=== PATIENT | female | born 1985 | race Two or more races ===

== ENCOUNTER 2017-12-14 14:30 | Emergency (ER) | payer BC ==
[2017-12-14 14:45] VITALS: BP 107/70
[2017-12-14] MEDS ORDERED: NORMAL SALINE 1000 ML 1,000 ML IV ONE (16:44)
[2017-12-14] MEDS ORDERED: MECLIZINE HCL 25 MG TABLET PO ONE (16:45)
[2017-12-14] MEDS ORDERED: DIAZEPAM INJ 10 MG/2 ML DISP.SYRIN IV ONE (16:45)
[2017-12-14 17:28] LABS: ABSOLUTE EOSINOPHILS # (AUTO) 0.2 10^3/uL (0.0-0.6); ABSOLUTE MONOCYTES (AUTO) 0.6 10^3/uL (0.1-1.4); ABSOLUTE NEUT (AUTO) 3.3 10^3/uL (1.7-8.2); BASOPHILS % (AUTO) 0.6 % (0-2); EOSINOPHILS % (AUTO) 2.9 % (0-6); HEMATOCRIT 41.6 % (36.0-47.0); HEMOGLOBIN 14.3 g/dL (12.0-15.5); LYMPHOCYTES % (AUTO) 48.7 % (13-45); MEAN CORPUSCULAR HEMOGLOBIN 31.9 pg (27.0-33.4); MEAN CORPUSCULAR HGB CONC 34.4 g/dL (32.0-36.0); MEAN CORPUSCULAR VOLUME 93 fl (80-97); MONOCYTES % (AUTO) 7.5 % (3-13); PLATELET COUNT 173 10^3/uL (150-450); RED BLOOD COUNT 4.48 10^6/uL (3.72-5.28); RED CELL DISTRIBUTION WIDTH 13.6 % (11.5-14.0); SEGMENTED NEUTROPHILS % (AUTO) 40.3 % (42-78); TOTAL CELLS COUNTED % (AUTO) 100 %; WHITE BLOOD COUNT 8.2 10^3/uL (4.0-10.5)
[2017-12-14 17:43] LABS: ALANINE AMINOTRANSFERASE 52 U/L (9-52); ALBUMIN 3.9 g/dL (3.5-5.0); ALKALINE PHOSPHATASE 73 U/L (38-126); ANION GAP 8 (5-19); ASPARTATE AMINO TRANSFERASE 32 U/L (14-36); BILIRUBIN,DIRECT 0.4 mg/dL (0.0-0.4); BILIRUBIN,TOTAL 0.5 mg/dL (0.2-1.3); BLOOD UREA NITROGEN 7 mg/dL (7-20); CARBON DIOXIDE 28 mmol/L (22-30); CHLORIDE 107 mmol/L (98-107); GLUCOSE 107 mg/dL (75-110); POTASSIUM 3.7 mmol/L (3.6-5.0); SODIUM 142.5 mmol/L (137-145); TOTAL PROTEIN 6.8 g/dL (6.3-8.2)
--- NOTE | 2017-12-14 18:27 | RADIOLOGY REPORT (SQ) ---
EXAM DESCRIPTION: CT HEAD WITHOUT COMPLETED DATE/TIME: 12/14/2017 6:03 pm REASON FOR STUDY: vertigo COMPARISON: None. TECHNIQUE: Axial images acquired through the brain without intravenous contrast. Images reviewed wi th bone, brain and subdural windows. Images stored on PACS. All CT scanners at this facility use dose modulation, iterative reconstruction, and/or weight based d osing when appropriate to reduce radiation dose to as low as reasonably achievable (ALARA). [facility]: Dose Right [facility]: CareDose [facility]: Dose Right [facility]: Teradose 4D [facility]: [place] RADIATION DOSE: CT Rad equipment meets quality standard of care and radiation dose reduction techniq ues were employed. CTDIvol: 53.2 mGy. DLP: 1017 mGy-cm. mGy. LIMITATIONS: None. FINDINGS: VENTRICLES: Normal size and contour. CEREBRUM: No masses. No hemorrhage. No midline shift. No evidence for acute infarction. Normal gra y/white matter differentiation. No areas of low density in the white matter. CEREBELLUM: No masses. No hemorrhage. No alteration of density. No evidence for acute infarction. EXTRAAXIAL SPACES: No fluid collections. No masses. ORBITS AND GLOBE: No intra- or extraconal masses. Normal contour of globe without masses. CALVARIUM: No fracture. PARANASAL SINUSES: Bilateral maxillary fluid -mucosal thickening. SOFT TISSUES: No mass or hematoma. OTHER: No other significant finding. IMPRESSION: No acute intracranial findings. Bilateral maxillary sinusitis. EVIDENCE OF ACUTE STROKE: NO. COMMENT: Quality ID # [id number]: Final reports with documentation of one or more dose reduction techniques (e.g., Automated exposure control, adjustment of the mA and/or kV according to patient size, use of iterative reconstruction technique) TECHNICAL DOCUMENTATION: JOB ID: [id number] [place]-72 2010 [employer]- All Rights Reserved Reading location - IP/workstation name: [email or web address]
--- NOTE | 2017-12-14 18:57 | ER Document Report ---
ED General - General Chief Complaint: Dizziness Stated Complaint: DIZZINESS,HEADACHE Time Seen by Provider: 12/14/17 16:20 Notes: Patient is a 31-year-old female that presents to the emergency department for chief complaint of vertigo. Patient states she has been having intermittent vertiginous symptoms over the past 4 days. 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 They will, and severe intensity, and then wane after several minutes. Most recently this episode was lasting longer so she decided to come to the emergency department. She has had nausea but no vomiting. She has had some sinus congestion, denies having any headaches, lightheadedness, syncopal episodes, numbness, tingling or weakness. She has never had vertigo in the past. Denies any other symptoms at this time. She states that she even took 2 tests because she was concerned maybe she was . Both were negative. Past Medical History: Diabetes mellitus, PCOS, migraines Past Surgical History: Hernia repair Social History: Admits to smoking cigarettes, denies alcohol or drug use. Family History: Reviewed and noncontributory for presenting illness Allergies: Reviewed, see documented allergy list. REVIEW OF SYSTEMS: Unless otherwise stated in this report the patient's positive and negative responses for review of systems for constitutional, eyes, ENT, cardiovascular, respiratory, gastrointestinal, neurological, genitourinary, musculoskeletal, and integumentary systems and related systems to the presenting problem are either as stated in the HPI or were not pertinent or were negative for the symptoms and/or complaints related to the presenting medical problem. PHYSICAL EXAMINATION: Vital signs reviewed, nursing noted reviewed. GENERAL: Well-appearing, well-nourished and in no acute distress. HEAD: Atraumatic, normocephalic. EYES: Horizontal nystagmus to the right, fatigable, extraocular movements intact , sclera anicteric, conjunctiva are normal. ENT: nares patent, oropharynx clear without exudates. Moist mucous membranes. TMs appear normal bilaterally NECK: Normal range of motion, supple without lymphadenopathy LUNGS: Breath sounds clear to auscultation bilaterally and equal. No wheezes rales or rhonchi. HEART: Regular rate and rhythm without murmurs ABDOMEN: Soft, nontender, normoactive bowel sounds. No rebound, guarding, or rigidity. No masses appreciated. EXTREMITIES: Nontender, good range of motion, no pitting or edema. NEUROLOGICAL: No focal neurological deficits. Moves all extremities spontaneously Motor and sensory grossly intact on exam. PSYCH: Normal mood, normal affect. SKIN: Warm, Dry, normal turgor, no rashes or lesions noted on exposed skin TRAVEL OUTSIDE OF THE [place] IN LAST 30 DAYS: No - Related Data Allergies/Adverse Reactions: No Known Allergies Allergy (Unverified 12/14/17 14:33) Past Medical History - Social History Smoking Status: Current Every Day Smoker Family History: Reviewed & Not Pertinent Patient has suicidal ideation: No Patient has homicidal ideation: No Neurological Medical History: Reports: Hx Migraine Endocrine Medical History: Reports: Hx Diabetes Mellitus Type 2 Renal/ Medical History: Denies: Hx Peritoneal Dialysis Physical Exam - Vital signs Vitals: Temp Pulse Resp BP Pulse Ox 98.5 F 99 16 107/70 98 12/14/17 14:41 12/14/17 14:41 12/14/17 14:41 12/14/17 14:41 12/14/17 14:41 Course - Re-evaluation Re-evalutation: Patient seen and examined vital signs reviewed. Laboratory data and imaging were ordered as appropriate for the patient's presenting symptoms and complaint, with consideration of any critical or life threatening conditions that may be associated with their obtained history and exam as noted above. Patient was treated with IV fluids, IV Valium and p.o. meclizine 25 mg Results were reviewed when available and demonstrated negative head CT, blood work unremarkable The patient was re-evaluated and was feeling much better, vertigo was resolved Evaluation was most consistent with benign paroxysmal positional vertigo, patient educated to sleep at a 45 degree angle for the next 3-5 nights, to help reduce recurrence of her vertigo, advised to follow-up with her primary care physician. Laboratory 12/14/17 12/14/17 17:00 17:00 WBC 8.2 RBC 4.48 Hgb 14.3 Hct 41.6 MCV 93 MCH 31.9 MCHC 34.4 RDW 13.6 Plt Count 173 Seg Neutrophils % 40.3 L Lymphocytes % 48.7 H Monocytes % 7.5 Eosinophils % 2.9 Basophils % 0.6 Absolute Neutrophils 3.3 Absolute Lymphocytes 4.0 Absolute Monocytes 0.6 Absolute Eosinophils 0.2 Absolute Basophils 0.0 Sodium 142.5 Potassium 3.7 Chloride 107 Carbon Dioxide 28 Anion Gap 8 BUN 7 Creatinine 0.67 Est GFR ( Amer) > 60 Est GFR (Non-Af Amer) > 60 Glucose 107 Calcium 9.0 Total Bilirubin 0.5 Direct Bilirubin 0.4 Neonat Total Bilirubin Not Reportable Neonat Direct Bilirubin Not Reportable Neonat Indirect Bili Not Reportable AST 32 ALT 52 Alkaline Phosphatase 73 Total Protein 6.[address] 12/14/17 16:44 IMPRESSION: No acute intracranial findings. Bilateral maxillary sinusitis. EVIDENCE OF ACUTE STROKE: NO. Results were discussed with the patient at this point, after careful consideration I feel that that patient can be discharged from the emergency department, the patient was educated treatments and reasons to return to the emergency department based on their presumed diagnosis as noted above, they were advised to followup with a primary care physician in 2-3 days. Patient was agreeable to plan of care. *Note is created using voice recognition software and may contain spelling, syntax or grammatical errors. - Vital Signs Vital signs: Temp Pulse Resp BP Pulse Ox 98.5 F 99 16 107/70 96 12/14/17 14:41 12/14/17 14:41 12/14/17 14:41 12/14/17 14:41 12/14/17 16:44 - Laboratory Result Diagrams: 12/14/17 17:00 12/14/17 17:00 Laboratory results interpreted by me: 12/14/17 17:00 Seg Neutrophils % 40.3 L Lymphocytes % 48.7 H Discharge - Discharge Clinical Impression: Vertigo Condition: Stable Disposition: HOME, SELF-CARE Instructions: Vertigo ([facility]) Additional Instructions: Please return to the emergency department if you have any worsening, or concern of your symptoms. Please return to the emergency department if you develop chest pain, difficulty breathing, severe abdominal pain, or ongoing vomiting. Please follow-up with your primary care physician in 2-3 days and any other recommended physicians. If prescribed, take all medications as directed. If you have any questions or concerns do not hesitate to return the emergency department for evaluation. Prescriptions: Meclizine HCl 25 mg PO Q8H PRN #15 tablet PRN Reason: Dizziness Referrals: MARCE ROBERTSON MD [ACTIVE STAFF] - Follow up in 3-5 days (or your primary care. )
--- NOTE | 2017-12-15 20:57 | EKG REPORT ---
SEVERITY:- NORMAL ECG - SINUS RHYTHM : Confirmed by: Lela Celeste MD 15-Dec-2017 20:56:12
== END 2017-12-14 19:26 | disposition home or self-care (01) ==
LOC: ER 14:30
DX: R42 Dizziness and giddiness (principal); J32.0 Chronic maxillary sinusitis; R11.0 Nausea; E11.9 Type 2 diabetes mellitus without complications; F17.210 Nicotine dependence, cigarettes, uncomplicated
CPT/HCPCS: 93005; 99284; 96361; 96374; 36415; 85025; 80053; 70450; 93010; J3360

== ENCOUNTER 2018-11-04 18:24 | Emergency (ER) | payer BC ==
[2018-11-04] MEDS ORDERED: OXYCODONE-ACETAMINOPHEN 5-325 MG TABLET PO ONE (19:13)
[2018-11-04] MEDS ORDERED: ONDANSETRON 4 MG TAB.RAPDIS PO ONE (19:13)
--- NOTE | 2018-11-04 19:16 | ER Document Report ---
ED Medical Screen (RME) - General Chief Complaint: Abscess Stated Complaint: POSSIBLE ABSCESS Time Seen by Provider: 11/04/18 19:08 Notes: Patient is a 32-year-old female who presents to the emergency department with a chief complaint of abscess. Patient reports she has had an abscess to the right groin and outer right labia for 3 days. She states she is use Epson salt, warm compresses, and [id number]-[id number] ointment but is supposed to draw the infection out without any relief. Patient reports that has not drained and pop like hers normally does. Patient denies a history of MRSA. TRAVEL OUTSIDE OF THE [place] IN LAST 30 DAYS: No - Related Data Allergies/Adverse Reactions: No Known Allergies Allergy (Verified 11/04/18 18:25) Past Medical History Neurological Medical History: Reports: Hx Migraine Endocrine Medical History: Reports: Hx Diabetes Mellitus Type 2 Renal/ Medical History: Denies: Hx Peritoneal Dialysis Physical Exam - Vital signs Vitals: Temp Pulse Resp BP Pulse Ox 98.1 F 91 13 110/76 95 11/04/18 18:38 11/04/18 18:38 11/04/18 18:38 11/04/18 18:38 11/04/18 18:38 Interpretation: Normal - Skin Notes: Multiple small abscesses noted to the left and right inner thighs and groin area. There is a large abscess that is firm and extremely tender to touch noted on the outside of the right labia, there is no drainage. Course - Re-evaluation Re-evalutation: 11/04/18 19:15 Patient will require an incision and drainage. Will medicate for pain. I have greeted and performed a rapid initial assessment of this patient. A comprehensive ED assessment and evaluation of the patient, analysis of test results and completion of the medical decision making process will be conducted by additional ED providers. - Vital Signs Vital signs: Temp Pulse Resp BP Pulse Ox 98.1 F 91 13 110/76 95 11/04/18 18:38 11/04/18 18:38 11/04/18 18:38 11/04/18 18:38 11/04/18 18:38
--- NOTE | 2018-11-04 22:02 | ER Document Report ---
ED Skin Rash/Insect Bite/Abscs - General Chief Complaint: Abscess Stated Complaint: POSSIBLE ABSCESS Time Seen by Provider: 11/04/18 19:08 Primary Care Provider: EMERSON YOUSSEF MD [ACTIVE STAFF] - Follow up in 3-5 days Mode of Arrival: Ambulatory Information source: Patient Notes: 32 yr old female pt here for concern of an acute flare of her hidradenitis suppurativa with an abscess to her right groin for 3 days. pos hx of this before. no fevers. No drainage. No recent antibiotics or steroids other than clindamycin topical. hx of diabetes but states her sugars are well controlled. hasn't f/u with surgeon to discuss possible marsupilization procedure. hasn't had mrsa testing done. has tried otc boil ease and epson salt soaks with no relief. no hx of asthma. area painful. not itchy. no other known trauma or injury or bite. denies . no vaginal dc, abd pain, vomiting, change in bowel or bladder, back pain, rectal pain, uti sx, or concerns for stds. no other complaints at this time. TRAVEL OUTSIDE OF THE [place] IN LAST 30 DAYS: No - Related Data Allergies/Adverse Reactions: No Known Allergies Allergy (Verified 11/04/18 18:25) Past Medical History - General Information source: Patient - Social History Smoking Status: Current Every Day Smoker Chew tobacco use (# tins/day): No Frequency of alcohol use: Occasional Drug Abuse: None Lives with: Spouse/Significant other Family History: Reviewed & Not Pertinent Patient has suicidal ideation: No Patient has homicidal ideation: No Neurological Medical History: Reports: Hx Migraine Endocrine Medical History: Reports: Hx Diabetes Mellitus Type 2 Renal/ Medical History: Denies: Hx Peritoneal Dialysis Skin Medical History: Reports Other - hirdadenitis suppurativa Infectious Medical History: Reports: None - Immunizations Immunizations up to date: Yes Review of Systems - Review of Systems -: Yes All other systems reviewed and negative - to include 10 systems, unless mentioned in the hpi Physical Exam - Vital signs Vitals: Temp Pulse Resp BP Pulse Ox 98.1 F 91 13 110/76 95 11/04/18 18:38 11/04/18 18:38 11/04/18 18:38 11/04/18 18:38 08/18/19 18:38 Interpretation: Normal Notes: GENERAL_APPEARANCE: well_nourished, alert, cooperative, no_acute distress, no_obvious discomfort. Pleasant, obese middle aged female, smiling, speaking in full sentences, in no sign of pain or resp distress, easily sitting up, who is a wound care doctor is at bedside VITALS: reviewed, see vital signs table. HEENT: PERRL, EOMI, no pharyngeal edema, normal speech, no nasal drainage, no airway obstruction, no lymphadenopathy. no tongue or lip swelling. HEART: RRR LUNGS: CTAB ABD: soft, nonttp, good bowel sounds, no hernias, no guarding, distension, rebound, or peritoneal signs. no cva ttp, no inguinal lymphadenopathy EXTREMITIES: good pulses in all extremities, no edema. Full rom. full strength. brisk cap refill. Normal gait. no other swelling or ttp. good hand communications officer. SKIN: warm, dry, good_color, the bilat groin have chronic scarring appearance from multiple prior i and d's and hx of hidradenitis suppurativa. there is a 4cm x 2m area of erythematous induration in right groin that is slightly fluctuant and ttp, doesn't appear to involve the labia, vagina, or rectum. no bartholin glands abscess/cyst. internal vaginal exam not done, no drainage, streaking fluctuation, or bleeding. no grossly visible or palpable fb, no sign of compartment syndrome or septic jt. area ttp. no sign of allergic reaction or anaphylaxis NEURO: motor_intact, sensory_intact. cranial nerves 2-12 intact. cerebellar fxn intact - General General appearance: Appears well, Alert - HEENT Head: Normocephalic, Atraumatic - Cardiovascular Murmur: No Course - Re-evaluation Re-evalutation: pt here for abscess to right groin. it was i and d'd as listed. will dc with doxy. advised sx care. advised wound care. instructed may benefit from seeing gen surg for marsupilization. otc meds for pain. wound culture pending. advised will call with any results that require change in plan of care. advised to f/u with pcp/gen surg in 1-2 days. return for any worsening symptoms. vss. well appearing. satting well on ra. neurononfocal. pt understands and agrees to plan. On reexam, pt improved with tx listed. remained stable. nontoxic. well appearing. pain controlled. tolerating po. requesting to go home. case discussed with ER Attending, Dr. Chan, who directed and agrees with plan of care and also saw and evaluated the pt himself and advised to i and d the area and give f/u with gen surg and that no further workup was indicated at this time and pt is stable for dc home with close f/u with pcp/surg. Documentation achieved through voice recording which may lead to some occasional accidental typographical errors. Extensive efforts have been made to proof read documentation to make sure these are the least as possible. Category Date Time Status Incision and Drainage [I&D Setup (ED)] NOW Care 11/04/18 22:17 Active WOUND CULTURE + GRAM STAIN [] Stat Lab 11/04/18 23:30 Completed Lidocaine HCl/Epinephrine [Xylocaine 1%/Epi 1:100,000 Med 11/04/18 22:17 Discontinued Inj 20 ml Vial] 20 ml INJ NOW ONE Morphine Sulfate [Morphine 10 mg/ml Inj] Med 11/04/18 22:21 Discontinued 4 mg IM NOW ONE Ondansetron [Zofran Odt 4 mg Tablet] Med 11/04/18 19:13 Discontinued 4 mg PO NOW ONE Oxycodone HCl/Acetaminophen [Percocet 5-325 mg Tablet] Med 11/04/18 19:13 Discontinued 2 tab PO NOW ONE - Vital Signs Vital signs: Temp Pulse Resp BP Pulse Ox 97.7 F 60 16 106/68 96 11/04/18 23:47 11/04/18 23:47 11/04/18 23:47 11/04/18 23:47 11/04/18 23:47 Procedures - Incision and Drainage Right Groin Type: Simple Anesthetic type: 1% Lidocaine w/epi Blade size: 11 I&D procedure: Betadine prep applied Incision Method: Incision made by scalpel Amount/type of drainage: <5ml bloody purulent drainage. Notes: INCISION AND DRAINAGE PROCEDURE of right groin abscess: The benefits, risks, and possible complications of the procedure were explained to the patient who clearly understood and gave verbal consent without reservation. The area was prepped with betadine and anesthetized with 1%_lidocaine_with_epi. A 3 cm incision was made superifically in the most fluctuant area of the abscess using a #11_blade sterile scalpel. <5 mL bloody pus expressed and then the cavity was probed superficially and gently with a hemostat and all loculations broken up, the area appeared mostly induration and scar tissue from prior hidradenitis suppurativa episodes and scaring from prior i and d's the cavity was shallow and long and didn't have enough area to place packing. The incision was left open with no packing in place. Pt tolerated procedure well. No complications. The wound was dressed with nonstick, gauze, and tape by me. hemostasis achieved with little to no blood loss. wound culture taken from most purulent area. it didn't appear to involve the labia, vagina, or rectum. Discharge - Discharge Clinical Impression: Hidradenitis suppurativa Condition: Good Disposition: HOME, SELF-CARE Instructions: Abscess ([facility]), Post Incision and Drainage Additional Instructions: Follow-up with PCP/surg in 1 to 2 days. Return for any worsening symptoms. epson salt soaks. wound care as discussed. we will call you with any abnormal results that require change in your plan of care. f/u with the general surgeon to discuss possible marsupilization procedure as discussed. take the medication as prescribed. tylenol or motrin as needed for any pain if not allergic. Prescriptions: Doxycycline Hyclate 100 mg PO BID #14 capsule Referrals: EMERSON YOUSSEF MD [ACTIVE STAFF] - Follow up in 3-5 days
[2018-11-04] MEDS ORDERED: LIDOCAINE 1%/EPINEPHRINE INJ 20 ML VIAL INJ ONE (22:17)
[2018-11-04] MEDS ORDERED: MORPHINE SULFATE 10 MG/ML INJ IM ONE (22:21)
[2018-11-04 23:51] VITALS: BP 106/68
== END 2018-11-04 23:52 | disposition home or self-care (01) ==
LOC: ER 18:24
PROC: 0H9HXZZ Drainage of Right Upper Leg Skin, External Approach (ICD-10-PCS; principal; 2018-11-04)
DX: L73.2 Hidradenitis suppurativa (principal); F17.200 Nicotine dependence, unspecified, uncomplicated; E11.9 Type 2 diabetes mellitus without complications
CPT/HCPCS: 99282; 87070; 87205; 87075; 87077; 87186; 10060; S0119; J3490; J2270